=== PATIENT | female | born 2000 | race Caucasian/White ===

== ENCOUNTER 2024-02-29 08:23 | Day surgery (SDC) | payer OTHER ==
[2024-02-26 16:35] VITALS: BMI 38.4
[2024-02-29] MEDS ORDERED: NITROGLYCERIN 2% OINTMENT - 1GM PACKET TD ONE ×5 (08:52→16:12)
[2024-02-29] MEDS ORDERED: BUPIVACAINE HCL/EPINEPHRINE/PF 30 ML VIAL IJ ONE (08:53)
[2024-02-29] MEDS ORDERED: ceFAZolin SODIUM 1 GM VIAL ONE (09:04)
[2024-02-29] MEDS ORDERED: PROPOFOL 20 ML ONE ×2 (09:04→13:47)
[2024-02-29] MEDS ORDERED: LIDOCAINE HCL/PF 2% SDV 5ML VIAL ONE (09:04)
[2024-02-29] MEDS ORDERED: MIDAZOLAM HCL 2 MG/2 ML SINGLE DOSE VIAL ONE (09:04)
[2024-02-29] MEDS ORDERED: ROCURONIUM BROMIDE 50 MG/5 ML SYRINGE ONE (10:48)
[2024-02-29] MEDS ORDERED: DEXAMETHASONE SOD PHOSPHATE 4 MG/1 ML VIAL ONE (11:08)
[2024-02-29] MEDS ORDERED: ONDANSETRON 4 MG/2 ML VIAL ONE (11:08)
[2024-02-29] MEDS ORDERED: HYDROmorphone HCL/PF 1 MG/ML VIAL ONE (11:34)
[2024-02-29] MEDS ORDERED: ONDANSETRON 4 MG/2 ML VIAL IVPUSH PRN (14:24)
[2024-02-29] MEDS ORDERED: oxyCODONE HCL 5 MG TABLET PO PRN (14:24)
[2024-02-29] MEDS ORDERED: ACETAMINOPHEN INJECTION 100 ML IVPB ONE (14:26)
[2024-02-29] MEDS: ACETAMINOPHEN 1000 MG/100 ML BAG IVPB ONE (14:30)
[2024-02-29] MEDS ORDERED: LACTATED RINGERS SOLUTION 1,000 ML IV SCH (14:30)
[2024-02-29 17:01] VITALS: RESP 18; TEMP 97.8
[2024-02-29] MEDS ORDERED: oxyCODONE HCL 5 MG TABLET ONE (17:03)
[2024-02-29] MEDS: oxyCODONE HCL 5 MG TABLET PO ONE (17:15)
[2024-02-29 18:15] VITALS: BP 96/58; PULSE 89
== END 2024-02-29 18:24 | disposition home or self-care (01) ==
LOC: FASU 08:23
PROVIDERS: ATTEND Plastic Surgery
PROC: 0JB60ZZ Excision of Chest Subcutaneous Tissue and Fascia, Open Approach (ICD-10-PCS; 2024-02-29)
PROC: 4A1GXSH Monitoring of Skin and Breast Vascular Perfusion using Indocyanine Green Dye, External Approach (ICD-10-PCS; 2024-02-29)
PROC: 0HBV0ZZ Excision of Bilateral Breast, Open Approach (ICD-10-PCS; principal; 2024-02-29 11:17)
DX: N62 Hypertrophy of breast (principal); E88.1 Lipodystrophy, not elsewhere classified
CPT/HCPCS: 81025; 88305-TC; 94760; J0131